=== PATIENT | female | born 1975 | race Caucasian/White ===

== ENCOUNTER 2022-10-31 16:40 | Emergency (ER) | payer OTHER, MEDICAID ==
[~2022-10-31] VITALS: Ht 175.3 cm; Wt 113.6 kg
[~2022-10-31 16:40] MED LIST: DEXL30CA3 PO
[2022-10-31 16:43] VITALS: BP 133/82
== END 2022-10-31 21:21 | disposition home or self-care (01) ==
LOC: ER 16:41
DX: M25.561 Pain in right knee (principal); K21.9 Gastro-esophageal reflux disease without esophagitis; F17.200 Nicotine dependence, unspecified, uncomplicated; Z88.6 Allergy status to analgesic agent; Z90.49 Acquired absence of other specified parts of digestive tract
CPT/HCPCS: 73564; 93971; 99284

== ENCOUNTER 2025-01-16 10:18 | Outpatient (CLI) | payer MEDICAID ==
--- NOTE | 2025-01-16 19:21 | RADIOLOGY REPORT ---
EXAM: MR MRI LOWER EXTREMITY RIGHT HISTORY: PAIN IN RIGHT KNEE/NILATERAL PRIMARY OSTEOARTHRITIS, RIGHT KNEE COMPARISON: None TECHNIQUE: Multiplanar, multisequence imaging of the right knee was performed without contrast FINDINGS: MEDIAL COMPARTMENT: Longitudinal horizontal type tear of the posterior body to posterior horn. No fo joel chondrosis or subchondral edema. LATERAL COMPARTMENT: Intact lateral meniscus. No focal chondrosis or subchondral edema. PATELLOFEMORAL COMPARTMENT: Broad area of near full-thickness cartilage loss of the lateral patellar facet. No subchondral edema. CRUCIATE LIGAMENTS: Intact anterior and posterior cruciate ligaments. MEDIAL SUPPORTING STRUCTURES: Intact medial collateral ligament. LATERAL SUPPORTING STRUCTURES: Intact iliotibial band, lateral capsular ligament, fibular collateral ligament, popliteus, and biceps femoris tendons EXTENSOR MECHANISM: Intact. Edema of the superolateral aspect of Hoffa's fat pad. Correlate for suarez lar maltracking (patellar tendon-lateral femoral condylar friction syndrome). JOINT SPACE/FLUID: Small knee joint effusion. Presumed ganglion cysts along the posterior joint capsu le of the of the proximal tibia measuring 2.8 x 0.9 cm. BONES: No acute fracture, osseous contusion, or aggressive focal osseous lesion MUSCLES: Minimal fluid along the popliteus tendon sheath NEUROVASCULAR: Unremarkable OTHER: None IMPRESSION: 1. Longitudinal horizontal type tear of the posterior body to posterior horn. 2. Broad area of near full-thickness cartilage loss of the lateral patellar facet. No subchondral zina ma. 3. Small knee joint effusion. Presumed ganglion cysts along the posterior joint capsule of the of the proximal tibia measuring 2.8 x 0.9 cm. 4. Edema of the superolateral aspect of Hoffa's fat pad. Correlate for patellar maltracking (patellar tendon-lateral femoral condylar friction syndrome).
== END 2025-01-16 23:59 | disposition home or self-care (01) ==
LOC: MRI02 10:18
PROVIDERS: ATTEND Physician Assistant Surgical
DX: S83.241A Other tear of medial meniscus, current injury, right knee, initial encounter (principal); M25.561 Pain in right knee; M17.11 Unilateral primary osteoarthritis, right knee; M25.461 Effusion, right knee; X58.XXXA Exposure to other specified factors, initial encounter; Y93.89 Activity, other specified; Y92.89 Other specified places as the place of occurrence of the external cause; Y99.8 Other external cause status; M94.8X6 Other specified disorders of cartilage, lower leg
CPT/HCPCS: 73721